=== PATIENT | female | born 1960 | race Caucasian/White ===

== ENCOUNTER → 2023-02-26 09:41 | Outpatient (BNVA) | payer MEDICARE, SELFPAY | PROVIDERS: PCP Nurse Practitioner Family; Visit Provider Internal Medicine Rheumatology | DX: M25.50 Pain in unspecified joint (principal); M19.90 Unspecified osteoarthritis, unspecified site; Z79.899 Other long term (current) drug therapy; M06.9 Rheumatoid arthritis, unspecified; Z71.85 Encounter for immunization safety counseling; E11.9 Type 2 diabetes mellitus without complications | CPT/HCPCS: 36415; 80076; 82306; 85025; 85651; 86140; 86200; 86480; 86704; 86803; 87340; 99204 ==

== ENCOUNTER 2023-03-02 11:50 | Outpatient (CLI) | payer MEDICARE, SELFPAY ==
--- NOTE | 2023-03-02 11:59 | XRR_ITS ---
PROCEDURE INFORMATION: Exam: XR Left Foot Exam date and time: 03/02/2023 12:14 PM Age: 62 years old Clinical indication: Pain; Foot; Left; Additional info: M25.50 - pain in unspecified joint TECHNIQUE: Imaging protocol: Radiologic exam of the left foot. Views: 3 or more views. COMPARISON: No relevant prior studies available. FINDINGS: Bones/joints: Normal. No erosive or osteoarthritis. No fracture or dislocation. No lytic or sclerotic bone lesion. The soft tissues are normal. Soft tissues: Normal. XR/XR foot LT min 3V* [id number] IMPRESSION: The findings are normal.
--- NOTE | 2023-03-02 11:59 | XRR_ITS ---
PROCEDURE INFORMATION: Exam: XR Left Hand Exam date and time: 03/02/2023 12:14 PM Age: 62 years old Clinical indication: Pain; Hand; Left; Additional info: M25.50 - pain in unspecified joint TECHNIQUE: Imaging protocol: Radiologic exam of the left hand. Views: 3 or more views. COMPARISON: No relevant prior studies available. FINDINGS: Bones/joints: Normal. No erosive or osteoarthritis. No fracture or dislocation. No lytic or sclerotic bone lesion. The soft tissues are normal. Soft tissues: Normal. XR/XR hand LT min 3V* [id number] IMPRESSION: The findings are normal.
--- NOTE | 2023-03-02 11:59 | XRR_ITS ---
PROCEDURE INFORMATION: Exam: XR Right Knee Exam date and time: 03/02/2023 12:14 PM Age: 62 years old Clinical indication: Pain; Knee; Right; Additional info: M25.50 - pain in unspecified joint TECHNIQUE: Imaging protocol: Radiologic exam of the right knee. Views: 3 views. COMPARISON: CR XR foot RT min 3V* [id number] 03/02/2023 12:14 PM FINDINGS: Bones/joints: Chondrocalcinosis. Tricompartment narrowing and spurring. No erosive changes. No joint effusion. No acute osseous or joint abnormality. Soft tissues: Normal. XR/XR knee RT 3V* [id number] IMPRESSION: Degenerative changes with chondrocalcinosis.
--- NOTE | 2023-03-02 11:59 | XRR_ITS ---
PROCEDURE INFORMATION: Exam: XR Right Hand Exam date and time: 03/02/2023 12:14 PM Age: 62 years old Clinical indication: Pain; Hand; Right; Additional info: M25.50 - pain in unspecified joint TECHNIQUE: Imaging protocol: Radiologic exam of the right hand. Views: 3 or more views. COMPARISON: No relevant prior studies available. FINDINGS: Bones/joints: Normal. No erosive or osteoarthritis. No fracture or dislocation. No lytic or sclerotic bone lesion. The soft tissues are normal. Soft tissues: Normal. XR/XR hand RT min 3V* [id number] IMPRESSION: The findings are normal.
--- NOTE | 2023-03-02 11:59 | XRR_ITS ---
PROCEDURE INFORMATION: Exam: XR Right Foot Exam date and time: 03/02/2023 12:14 PM Age: 62 years old Clinical indication: Pain; Foot; Right; Additional info: M25.50 - pain in unspecified joint TECHNIQUE: Imaging protocol: Radiologic exam of the right foot. Views: 3 or more views. COMPARISON: CR XR knee RT 3V* [id number] 03/02/2023 12:14 PM FINDINGS: Bones/joints: Normal. No erosive or osteoarthritis. No fracture or dislocation. No lytic or sclerotic bone lesion. The soft tissues are normal. Soft tissues: Normal. XR/XR foot RT min 3V* [id number] IMPRESSION: The findings are normal.
== END 2023-03-02 11:51 | disposition home or self-care (01) ==
PROVIDERS: PCP Nurse Practitioner Family; Visit Provider Internal Medicine Rheumatology
DX: M25.561 Pain in right knee (principal); M25.572 Pain in left ankle and joints of left foot; M25.571 Pain in right ankle and joints of right foot; M11.261 Other chondrocalcinosis, right knee; M25.542 Pain in joints of left hand; M25.541 Pain in joints of right hand
CPT/HCPCS: 73130; 73562; 73630

== ENCOUNTER 2025-04-03 12:39 | Outpatient (CLI) | payer MEDICARE, MEDICAID, SELFPAY ==
--- NOTE | 2025-04-03 12:46 | XR_ITS ---
WS: [id number] SCREENING DEXA SCAN [employer]ide[employer]ot CLINICAL INFORMATION: POSTMENOPAUSAL COMPARISON: None. FINDINGS: The L1-L4 bone mineral density measures 1.150 g/cm2. This corresponds to a T score score of -0.3 and Z score of 0.8. Left femoral neck bone mineral density measures 0.906 g/cm2. This corresponds to a T score of -0.8 and Z score of 0.1. Right femoral neck bone mineral density measures 0.929 g/cm2. This corresponds to a T score -0.6of and Z score of 0.2. Mean femoral neck bone mineral density measures 0.917 g/cm2. This corresponds to a T score of -0.7 and Z score of 0.2. XR/XR DEXA axial skeleton* [id number] IMPRESSION: Normal bone mineralization. Patient's FRAX calculated 10 year probability for major osteoporotic fracture i s 11.0% and osteoporotic hip fracture is 1.2%.
--- NOTE | 2025-04-03 12:46 | MM_ITS ---
WS: [id number] BILATERAL 3D TOMOSYNTHESIS DIGITAL SCREENING MAMMOGRAPHY WITH CAD CLINICAL INFORMATION: SCREENING HISTORY: Screening mammogram. No current complaints. COMPARISON: Baseline TECHNIQUE: Bilateral CC and MLO views. FINDINGS: Scattered fibroglandular densities bilaterally. No suspicious focal mass, asymmetry, calcifications, or architectural distortion. No evidence of malignancy. Coarse calcifications LEFT breast MM/MM scr BI tomosynthesis [id number] IMPRESSION: DENSITY: There are scattered areas of fibroglandular density. BI-RADS: 2 - Benign. FOLLOW UP: 1 Year Follow-up Recommend return to annual screening mammography.
== END 2025-04-03 12:40 | disposition home or self-care (01) ==
LOC: RAD 12:41
PROVIDERS: PCP Family Medicine; Visit Provider Family Medicine
DX: Z12.31 Encounter for screening mammogram for malignant neoplasm of breast (principal); Z13.820 Encounter for screening for osteoporosis; Z78.0 Asymptomatic menopausal state; R92.323 Mammographic fibroglandular density, bilateral breasts; R92.1 Mammographic calcification found on diagnostic imaging of breast
CPT/HCPCS: 77063; 77067; 77080